=== PATIENT | male | born 1985 | race Caucasian/White ===

== ENCOUNTER → 2018-10-13 | Day surgery (SDC) | payer BC ==
[~2018-10-13] VITALS: Ht 182.9 cm; Wt 76.8 kg
[2018-10-13] VITALS (9 sets, daily range): BP systolic 134–150; BP diastolic 61–88; PULSE 86–113; TEMP 97.9–98.4
[~2018-10-13] MED LIST: CEPHALEXIN500 M1 PO; COLACE 100100 MG/CAP PO; FLONASEALLERGY NS; MEGA MULTIVITAM1 TAB PO; MONOLAURIN PO; MOTRIN 600600 MG/TAB PO; NO HOME MEDICATIONS; NORCO 325 MG-51 TAB PO; OMEGA-3 1000 MG1 CAP PO; PHENERGAN 25 TA25 MG PO; SINGULAIR 110 MG/TAB PO; ZOFRAN ODT8 MG PO; ZYRTEC 10MG10 MG PO
--- NOTE | 2018-10-13 15:10 | NUR ---
Patient returns to room 2 per cart and arouses to verbal stimuli. Temp 98.4 and sats 100% on 2L. Incisions x3 on abdomen covered with dunaway set and sites free of drainage or swelling. Taking few ice chips. Family in room. IV infusing and siderails up x2. Call light in reach. Allowed to rest.
--- NOTE | 2018-10-13 15:25 | NUR ---
Taking ice chips and denies nausea. Offered pain medication and denies need for this. Allowed to rest.
--- NOTE | 2018-10-13 15:40 | NUR ---
States that he is beginning to have mild pain at 5/10 on the left lower side of abdomen.
--- NOTE | 2018-10-13 15:40 | NUR ---
Medicated with Fentanyl 50mcg for pain at 5/10. Friend in room and patient allowed to rest.
--- NOTE | 2018-10-13 15:55 | NUR ---
Resting without further complaints of discomfort. Will continue to monitor and allow patient to rest.
--- NOTE | 2018-10-13 16:10 | NUR ---
Sleeping and offers no complaints of pain.
--- NOTE | 2018-10-13 16:40 | NUR ---
Continues to rest with eyes closed and offers no further complaints of pain. Friend at side.
--- NOTE | 2018-10-13 17:10 | NUR ---
Sitting up on cart. States that he is more awake now and pain is tolerable. Incisions dry and no redness or drainage noted from the sites.
--- NOTE | 2018-10-13 17:25 | NUR ---
Eating crackers, applesauce, and sipping on ice tea. Family at side. Parents returned with Motrin and [place] scripts. Instructed to take the [place] every 4 hours as needed for pain and to take the Motrin every 6 hours. Instructed to take medication with food or milk and to avoid constipation by taking laxative.
--- NOTE | 2018-10-13 17:45 | NUR ---
Ambulatory in the hallway and is able to void and returns to room.
--- NOTE | 2018-10-13 18:09 | NUR ---
Given dismissal instructions and voices understanding of these. Provided office number for questions and concerns.
--- NOTE | 2018-10-13 18:15 | NUR ---
Patient dismissed to home per private vehicle driven by friend with instructions in hand. Taken to the emergency room entrance and assisted into vehicle by RN.
== END ==
LOC: SDCO 10:35
DX: K40.90 Unilateral inguinal hernia, without obstruction or gangrene, not specified as recurrent (principal); Z79.899 Other long term (current) drug therapy
CPT/HCPCS: A4314; C1781; J0690; J1100; J1885; J2405; J3010; J7120

== ENCOUNTER 2018-10-15 11:45 | Emergency (ER) | payer BC ==
[~2018-10-15] VITALS: Ht 182.9 cm; Wt 75.0 kg
[~2018-10-15 11:45] MED LIST changes: -PHENERGAN 25 TA25 MG PO; -ZOFRAN ODT8 MG PO
[2018-10-15 11:51] VITALS: BP 150/83; TEMP 99.1
[2018-10-15 12:28] LABS: BASO # 0.1 (0.0-0.2); BASO % 0.7 % (0.0-2.0); EOS # 0.1 (0.0-0.7); GRAN # 4.4 (1.4-6.5); GRAN % 65.1 % (42.2-75.2); HEMOGLOBIN 14.3 g/dl (13.5-18.0); LYMPH # 1.4 (1.2-3.4); LYMPH % 20.2 % (20.0-51.0); MEAN CELL VOLUME 84 fl (80.0-100.0); MEAN CORPUSCULAR HEMOGLOBIN 27 pg (27.0-31.0); MEAN CORPUSCULAR HGB CONC 33 g/dl (33.0-37.0); MEAN PLATELET VOLUME 11.6 fl (7.4-10.4); MONO # 0.9 (0.1-0.6); MONO % 12.9 % (1.7-9.3); PLATELET COUNT 189 K/mm3 (130-400); RED BLOOD COUNT 5.23 M/mm3 (4.20-5.60); REDCELL DISTRIBUTION WIDTH-CV 13.7 % (11.5-14.5)
[2018-10-15 12:39] LABS: ALBUMIN 4.5 gm/dL (3.5-5.0); BILIRUBIN,TOTAL 1.9 mg/dL (0.0-1.0); CALCIUM 9.7 mg/dL (8.4-10.2); CREATININE, serum 0.93 mg/dL (0.66-1.25); POTASSIUM 4.3 mmol/L (3.4-5.0); TOTAL PROTEIN 7.9 gm/dL (6.4-8.2)
[2018-10-15 14:16] LABS: COLLECTION METHOD CLEAN CATCH
[2018-10-15 14:24] LABS: PH 8 (5-8); SQUAMOUS EPITHELIAL 0-2 /hpf; URINE APPEARANCE Clear; URINE BACTERIA None Seen /hpf; URINE BILIRUBIN Negative (NEGATIVE); URINE BLOOD Negative (NEGATIVE); URINE COLOR Straw; URINE GLUCOSE Negative (NEGATIVE); URINE KETONE Negative (NEGATIVE); URINE LEUKOCYTE ESTERASE Negative (NEGATIVE); URINE NITRATE Negative (NEGATIVE); URINE PROTEIN(semi-quant) Negative (NEGATIVE); URINE RBC 0-2 /hpf; URINE UROBILINOGEN Negative (NEGATIVE)
[2018-10-15] MEDS ORDERED: ZOFRAN ODT8 MG PO (14:57)
[2018-10-15] MEDS ORDERED: PHENERGAN 25 TA25 MG PO (14:57)
[2018-10-15 17:00] VITALS: PULSE 60
== END 2018-10-15 17:00 | disposition home or self-care (01) ==
LOC: COL.ER 11:45
PROVIDERS: Emergency Medicine
DX: R11.2 Nausea with vomiting, unspecified (principal); R10.9 Unspecified abdominal pain; Z79.51 Long term (current) use of inhaled steroids
CPT/HCPCS: J2060; J2405; J2550; J7030; Q9967

== ENCOUNTER → 2018-10-16 | Outpatient (CLI) | payer BC ==
[~2018-10-16] MED LIST changes: +PHENERGAN 25 TA25 MG PO; +ZOFRAN ODT8 MG PO
== END ==
LOC: COL.RAD 12:55
DX: R10.9 Unspecified abdominal pain (principal); R11.2 Nausea with vomiting, unspecified; Z98.890 Other specified postprocedural states
CPT/HCPCS: Q9967

== ENCOUNTER → 2019-08-27 | Outpatient (CLI) | payer BC | LOC: MC.RAD 08:46 | DX: N63.20 Unspecified lump in the left breast, unspecified quadrant (principal); N62 Hypertrophy of breast ==